=== PATIENT | female | born 1960 | race Hispanic/Latino ===

== ENCOUNTER → 2017-07-29 | Outpatient (CLI) | payer OTHER ==
--- NOTE | 2017-07-29 13:11 | Diagnostic Imaging Report ---
EXAM: DXA BONE DENSITY INDICATIONS: Postmenopausal screening COMPARISON: None. FINDINGS: Left femoral neck bone mineral density (BMD) (g/cm2):0.647 Femur T-score (standard deviation relative to young adult mean BMD): -1.9 Femur Z-score (standard deviation relative to age-matched control group):-0.7 Lumbar bone mineral density (BMD) (g/cm2):0.820 Lumbar T-score (standard deviation relative to young adult mean BMD): -2.1 Lumbar Z-score (standard deviation relative to age-matched control group):-0.8 CONCLUSION: 1. WHO bone mineral classification: Low bone mass (osteopenia). 2. 10 year major osteoporotic fracture risk is 4.6%, with a hip fracture risk of 0.5%. Dictated by: Efrem Burkett M.D. on 07/29/2017 at 13:13 Electronically approved by: Efrem Burkett M.D. on 07/29/2017 at 13:13
== END ==
LOC: MAMMO 10:45
PROVIDERS: ATTEND Obstetrics & Gynecology
DX: Z12.31 Encounter for screening mammogram for malignant neoplasm of breast (principal); Z13.820 Encounter for screening for osteoporosis
CPT/HCPCS: 77067; 77080